=== PATIENT | female | born 1990 | race Caucasian/White ===

== ENCOUNTER 2019-05-18 11:20 | Emergency (ER) | payer SELFPAY ==
[2019-05-18] MEDS ORDERED: Sodium Chloride 0.9% 10 ML Syringe FLUSH PRN (12:17)
[2019-05-18] MEDS ORDERED: Metoclopramide 10 MG/2 ML SDV IV ONE (12:17)
[2019-05-18] MEDS ORDERED: fentaNYL 100 MCG/2 ML SDV IVPUSH ONE (12:17)
[2019-05-18] MEDS ORDERED: Ketorolac 30 MG/ML SDV IVPUSH ONE (12:17)
[2019-05-18] MEDS ORDERED: Sodium Chloride 0.9% 1,000 ML IV SCH (12:30)
[2019-05-18 13:03] VITALS: BP 111/63; PULSE 56
--- NOTE | 2019-05-18 14:07 | EDM.PDOC ---
ED HPI GENERAL MEDICAL PROBLEM - General Chief Complaint: Abdominal Pain Stated Complaint: ULMBILICAL HERNIA MESH, ABD PAIN Time Seen by Provider: 05/18/19 12:20 Source of Information: Reports: Patient, Family History Limitations: Reports: No Limitations - History of Present Illness INITIAL COMMENTS - FREE TEXT/NARRATIVE: 29 year old female presents to ER for evaluation due to acute onset periumbilical abdominal pain yesterday. Patient was raking leaves yesterday around noon and felt a pop in her abdomen resulting in abdominal pain and had to stop. Patient did not take any medications for pain today. Patient had a umbilical hernia repair about 3 years ago with no recent complications or concerns. Alma was unable to sleep last night due to pain. Alma has been feeling nausea today without vomiting. Pain is much improved at rest and worsen when standing or movement. Patient had a normal but slightly looser BM this am of normal color. Patient has not noticed new bulging or redness in her abdomen and unable to localize her pain. Patient has not eaten or drank any fluid today due to nausea and discomfort. Patient denies or urinary symptoms. No vaginal discharge or abnormal bleeding. Abdomen Pain Score (Numeric/FACES): 2 - Related Data Allergies Allergy/AdvReac Type Severity Reaction Status Date / Time aspirin Allergy Severe Difficulty Verified 05/18/19 11:52 Breathing levofloxacin [From Levaquin] Allergy Severe Difficulty Verified 05/18/19 11:52 Breathing Home Meds: Home Meds Albuterol [Proventil Neb Soln] 2.5 mg .XX Q6HR 30 Days neb 05/27/16 [Rx] Acetaminophen/HYDROcodone [[place] 325-5 MG] 1 - 2 tab PO Q6H PRN 2 Days #10 tab 05/18/19 [Rx] Citalopram Hydrobromide [Celexa] 10 mg PO DAILY 05/18/19 [History] Cyclobenzaprine [Flexeril] 5 - 10 mg PO TID PRN 5 Days #15 tab 05/18/19 [Rx] Ibuprofen 800 mg PO Q6H PRN 20 Days #30 tablet 05/18/19 [Rx] Past Medical History - Past Health History Medical/Surgical History: Denies Medical/Surgical History Gastrointestinal History: Reports: GERD 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: , 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 Psychiatric History: Reports: Anxiety Dermatologic History: Reports: Other (See Below) Other Dermatologic History: history of munson to stomach right arm, leg, neck - Infectious Disease History Infectious Disease History: Reports: Chicken Pox - Past Surgical History HEENT Surgical History: Reports: Adenoidectomy, Tonsillectomy GI Surgical History: Reports: Hernia, Abdominal Social & Family History - Family History Family Medical History: Noncontributory - Tobacco Use Smoking Status *Q: Current Every Day Smoker Years of Tobacco use: 10 Packs/Tins Daily: 0.5 - Caffeine Use Caffeine Use: Reports: Coffee, Soda - Recreational Drug Use Recreational Drug Use: No ED ROS GENERAL - Review of Systems Review Of Systems: ROS reveals no pertinent complaints other than HPI. ED EXAM, GI/ABD - Physical Exam Exam: See Below Exam Limited By: No Limitations General Appearance: Alert, WD/WN, Moderate Distress (due to abdominal pain ), Other (tearful due to pain) Eyes: Bilateral: Normal Appearance, EOMI Ears: Normal External Exam, Normal Canal, Hearing Grossly Normal, Normal TMs Nose: Normal Inspection, Normal Mucosa, No Blood Throat/Mouth: Normal Inspection Head: Atraumatic, Normocephalic Neck: Normal Inspection, Supple, Non-Tender, Full Range of Motion Respiratory/Chest: No Respiratory Distress, Lungs Clear, Normal Breath Sounds, Chest Non-Tender Cardiovascular: Normal Peripheral Pulses, Regular Rate, Rhythm, No Edema, No Gallop GI/Abdominal Exam: Normal Bowel Sounds, Soft, No Distention, No Mass, Pelvis Stable, Tender (right mid abdomen and entire periumbilical area), Hernia (no palpable hernia with increase in intraabdominal pressure but limited effort due to pain). No: Guarding, Rigid, Rebound (Female) Exam: Deferred Rectal (Female) Exam: Deferred Extremities: Normal Inspection, Normal Range of Motion, Non-Tender, Normal Capillary Refill, No Pedal Edema Neurological: Alert, Oriented, CN II-XII Intact, Normal Cognition, Normal Gait, Normal Reflexes, No Motor/Sensory Deficits Psychiatric: Normal Affect, Normal Mood, Tearful Skin Exam: Warm, Dry, Intact, Normal Color, No Rash Course - Vital Signs Last Recorded V/S: Last Vital Signs Temp 36.3 C 05/18/19 11:49 Pulse 56 L 05/18/19 13:02 Resp 16 05/18/19 13:02 BP 111/63 05/18/19 13:02 Pulse Ox 100 05/18/19 13:02 - Orders/Labs/Meds Orders: Active Orders 24 hr Category Date Time Status Peripheral IV Care [RC] . DIRECTED Care 05/18/19 12:18 Active Sodium Chloride 0.9% [Normal Saline] 1,000 ml Med 05/18/19 12:30 Active IV ASDIRECTED Sodium Chloride 0.9% [Saline Flush] Med 05/18/19 12:17 Active 10 ml FLUSH ASDIRECTED PRN Peripheral IV Insertion Adult [OM.PC] Urgent Oth 05/18/19 12:16 Ordered Medication Orders Sodium Chloride (Normal Saline) 1,000 mls @ 500 mls/hr IV ASDIRECTED NATIVIDAD Last Admin: 05/18/19 12:54 Dose: 500 mls/hr Sodium Chloride (Saline Flush) 10 ml FLUSH ASDIRECTED PRN PRN Reason: Keep Vein Open Last Admin: 05/18/19 13:03 Dose: 10 ml Labs: Laboratory Tests 05/18/19 05/18/19 05/18/19 Range/Units 12:17 12:29 12:29 WBC 7.7 (4.5-11.0) K/uL RBC 4.30 (3.30-5.50) M/uL Hgb 13.9 D (12.0-15.0) g/dL Hct 40.5 (36.0-48.0) % MCV 94 (80-98) fL MCH 32 H (27-31) pg MCHC 34 (32-36) % Plt Count 250 (150-400) K/uL Neut % (Auto) 68 H (36-66) % Lymph % (Auto) 22 L (24-44) % Teller % (Auto) 9 H (2-6) % Eos % (Auto) 2 (2-4) % Baso % (Auto) 0 (0-1) % Sodium 143 (140-148) mmol/L Potassium 3.5 L (3.6-5.2) mmol/L Chloride 107 (100-108) mmol/L Carbon Dioxide 25 (21-32) mmol/L Anion Gap 14.5 H (5.0-14.0) mmol/L BUN 8 (7-18) mg/dL Creatinine 0.7 D (0.6-1.0) mg/dL Est Cr Clr Drug Dosing 97.21 mL/min Estimated GFR (MDRD) > 60 (>60) Glucose 99 (74-106) mg/dL Calcium 8.8 (8.5-10.1) mg/dL HCG, Qual Negative Urine Color (YELLOW) Urine Appearance (CLEAR) Urine pH (5.0-8.0) Ur Specific [place] (1.008-1.030) Urine Protein (NEGATIVE) mg/dL Urine Glucose (UA) (NEGATIVE) mg/dL Urine Ketones (NEGATIVE) mg/dL Urine Occult Blood (NEGATIVE) Urine Nitrite (NEGATIVE) Urine Bilirubin (NEGATIVE) Urine Urobilinogen (0.2-1.0) EU/dL Ur Leukocyte Esterase (NEGATIVE) Urine RBC (0-5) Urine WBC (0-5) Ur Epithelial Cells Amorphous Sediment Urine Bacteria Urine Mucus 05/18/19 Range/Units 14:18 WBC (4.5-11.0) K/uL RBC (3.30-5.50) M/uL Hgb (12.0-15.0) g/dL Hct (36.0-48.0) % MCV (80-98) fL MCH (27-31) pg MCHC (32-36) % Plt Count (150-400) K/uL Neut % (Auto) (36-66) % Lymph % (Auto) (24-44) % Teller % (Auto) (2-6) % Eos % (Auto) (2-4) % Baso % (Auto) (0-1) % Sodium (140-148) mmol/L Potassium (3.6-5.2) mmol/L Chloride (100-108) mmol/L Carbon Dioxide (21-32) mmol/L Anion Gap (5.0-14.0) mmol/L BUN (7-18) mg/dL Creatinine (0.6-1.0) mg/dL Est Cr Clr Drug Dosing mL/min Estimated GFR (MDRD) (>60) Glucose (74-106) mg/dL Calcium (8.5-10.1) mg/dL HCG, Qual Urine Color Yellow (YELLOW) Urine Appearance Clear (CLEAR) Urine pH 6.0 (5.0-8.0) Ur Specific [place] 1.015 (1.008-1.030) Urine Protein Negative (NEGATIVE) mg/dL Urine Glucose (UA) Negative (NEGATIVE) mg/dL Urine Ketones Negative (NEGATIVE) mg/dL Urine Occult Blood Negative (NEGATIVE) Urine Nitrite Negative (NEGATIVE) Urine Bilirubin Negative (NEGATIVE) Urine Urobilinogen 0.2 (0.2-1.0) EU/dL Ur Leukocyte Esterase Negative (NEGATIVE) Urine RBC 0-5 (0-5) Urine WBC 0-5 (0-5) Ur Epithelial Cells Rare Amorphous Sediment Not seen Urine Bacteria Rare Urine Mucus Not seen Meds: Medications Generic Name Dose Route Start Last Admin Trade Name Freq PRN Reason Stop Dose Admin Sodium Chloride 1,000 mls @ 500 mls/hr 05/18/19 12:30 05/18/19 12:54 Normal Saline IV 500 mls/hr ASDIRECTED NATIVIDAD Administration Sodium Chloride 10 ml 05/18/19 12:17 05/18/19 13:03 Saline Flush FLUSH 10 ml ASDIRECTED PRN Administration Keep Vein Open Discontinued Medications Generic Name Dose Route Start Last Admin Trade Name Freq PRN Reason Stop Dose Admin Fentanyl 50 mcg 05/18/19 12:17 05/18/19 12:55 Sublimaze IVPUSH 05/18/19 12:18 50 mcg ONETIME ONE Administration Ketorolac Tromethamine 30 mg 05/18/19 12:17 05/18/19 12:57 Toradol IVPUSH 05/18/19 12:18 30 mg ONETIME ONE Administration Metoclopramide HCl 5 mg 05/18/19 12:17 05/18/19 12:57 Reglan IV 05/18/19 12:18 5 mg ONETIME ONE Administration - Re-Assessments/Exams Free Text/Narrative Re-Assessment/Exam: Patient was offered IV Fluids, Reglan for nausea, Toradol for pain and Fentanyl 50mcg. Patient's pain and nausea was much improved. I reviewed test results with patient and family which are all normal. Urine normal test negative. Patient has benign abdominal exam and localized pain to muscle layer. I explained that hernia is not normal visualized on CT or abdominal xray unless bowel obstruction. Advance imaging is not recommended at this time. Patient has normal bowel sound and BM this am therefore unlikely. Pain medications, NSAIDs and muscle relaxant offered with follow with PCP if continued concerns or General Surgeon if symptoms worsen or not improving with abdominal strain instructions. 05/18/19 13:35 Departure - Departure Time of Disposition: 14:10 Disposition: Home, Self-Care 01 Clinical Impression: Abdominal muscle strain - Discharge Information Prescriptions: Acetaminophen/HYDROcodone [[place] 325-5 MG] 1 - 2 tab PO Q6H PRN 2 Days #10 tab PRN Reason: Pain (Severe 7-10) Cyclobenzaprine [Flexeril] 5 - 10 mg PO TID PRN 5 Days #15 tab PRN Reason: Muscle Spasm Ibuprofen 800 mg PO Q6H PRN 20 Days #30 tablet PRN Reason: inflammation Instructions: Abdominal Pain, Adult, [id number], Heat Therapy, Muscle Strain Referrals: Kendal Alvarez PA [Primary Care Provider] - Forms: ED Department Discharge Additional Instructions: 1. Warm compress 15-20 minutes 3-4 time per day. 2. Ibuprofen 800mg every 6 hours with food for pain, swelling and inflammation. 3. Flexeril 5-10mg every 6 hours for muscle spasms and pain. 4. [place] 1-2 tablets every 6-8 hours for moderate to severe pain. 5. Call PCP for recheck in 1-2 weeks to discuss symptoms and physical therapy. 6. Purchase an abdominal wrap to remind you to protect your abdominal muscle with increased activity. 7. Call General Surgeon for recheck in 2-3 weeks if continue pain, worsening symptoms or concerns. - My Orders Last 24 Hours: My Active Orders 05/18/19 12:16 Peripheral IV Insertion Adult [OM.PC] Urgent 05/18/19 12:17 Sodium Chloride 0.9% [Saline Flush] 10 ml FLUSH ASDIRECTED PRN 05/18/19 12:18 Peripheral IV Care [RC] . DIRECTED 05/18/19 12:30 Sodium Chloride 0.9% [Normal Saline] 1,000 ml IV ASDIRECTED - Assessment/Plan Last 24 Hours: My Active Orders 05/18/19 12:16 Peripheral IV Insertion Adult [OM.PC] Urgent 05/18/19 12:17 Sodium Chloride 0.9% [Saline Flush] 10 ml FLUSH ASDIRECTED PRN 05/18/19 12:18 Peripheral IV Care [RC] . DIRECTED 05/18/19 12:30 Sodium Chloride 0.9% [Normal Saline] 1,000 ml IV ASDIRECTED
== END 2019-05-18 14:35 | disposition home or self-care (01) ==
LOC: JP.ED 11:20
DX: S39.011A Strain of muscle, fascia and tendon of abdomen, initial encounter (principal); F17.210 Nicotine dependence, cigarettes, uncomplicated; Z88.1 Allergy status to other antibiotic agents; Z79.899 Other long term (current) drug therapy; Z98.890 Other specified postprocedural states; Z88.6 Allergy status to analgesic agent; X50.0XXA Overexertion from strenuous movement or load, initial encounter
CPT/HCPCS: 36415; 80048; 81001; 84703; 85025; 96361; 96374; 96375; 99284; J1885; J2765; J3010; J7030; 99283

== ENCOUNTER 2020-12-12 14:59 | Inpatient (IN) | payer BC, MEDICAID ==
--- NOTE | 2020-12-12 16:06 | PCM.PN ---
- General Info Date of Service: 12/12/20 (late contractions) Admission Dx/Problem (Free Text): 30 year old with late contractions. Contractions started earlier today and have remained steady over the day. No leaking of fluid or bloody discharge. She is 36 1/7 weeks gestation with an LATONIA of 01/08/21, has a repeat c section scheduled for 01/02/21. HIV negative, GBS done today, Will need Covid if continues to contract despite hydration. She has had 3 vaginal births and one c section for demise at 29 weeks. - Review of Systems General: Reports: No Symptoms HEENT: Reports: No Symptoms Pulmonary: Reports: No Symptoms Cardiovascular: Reports: No Symptoms Gastrointestinal: Reports: No Symptoms Genitourinary: Reports: No Symptoms Musculoskeletal: Reports: No Symptoms Skin: Reports: No Symptoms Neurological: Reports: No Symptoms Psychiatric: Reports: No Symptoms - Patient Data Vitals - Most Recent: Last Vital Signs Temp 97.4 F 12/12/20 15:09 Pulse 78 12/12/20 15:09 Resp 16 12/12/20 15:09 BP 118/67 12/12/20 15:09 Pulse Ox 95 12/12/20 15:09 Weight - Most Recent: 163 lb Lab Results Last 24 Hours: Laboratory Results - last 24 hr 12/12/20 Range/Units 15:10 Urine Color Yellow (YELLOW) Urine Appearance Clear (CLEAR) Urine pH 6.5 (5.0-8.0) Ur Specific [place] 1.010 (1.008-1.030) Urine Protein Negative (NEGATIVE) mg/dL Urine Glucose (UA) Negative (NEGATIVE) mg/dL Urine Ketones Negative (NEGATIVE) mg/dL Urine Occult Blood Negative (NEGATIVE) Urine Nitrite Negative (NEGATIVE) Urine Bilirubin Negative (NEGATIVE) Urine Urobilinogen 0.2 (0.2-1.0) EU/dL Ur Leukocyte Esterase Small H (NEGATIVE) Urine RBC 0-5 (0-5) Urine WBC 5-10 H (0-5) Ur Epithelial Cells Few Amorphous Sediment Not seen Urine Bacteria Moderate Urine Mucus Not seen - Exam General: Alert, Oriented HEENT: Pupils Equal Neck: Supple Lungs: Clear to Auscultation Cardiovascular: Regular Rate, Regular Rhythm GI/Abdominal Exam: Soft (Female) Exam: Normal External Exam, Cervical Dilatation, Enlarged Uterus Back Exam: Normal Inspection, Full Range of Motion Extremities: No Pedal Edema, Normal Capillary Refill Skin: Warm Psy/Mental Status: Alert, Normal Affect, Normal Mood - Patient Data Lab Results Last 24 hrs: Laboratory Results - last 24 hr 12/12/20 Range/Units 15:10 Urine Color Yellow (YELLOW) Urine Appearance Clear (CLEAR) Urine pH 6.5 (5.0-8.0) Ur Specific [place] 1.010 (1.008-1.030) Urine Protein Negative (NEGATIVE) mg/dL Urine Glucose (UA) Negative (NEGATIVE) mg/dL Urine Ketones Negative (NEGATIVE) mg/dL Urine Occult Blood Negative (NEGATIVE) Urine Nitrite Negative (NEGATIVE) Urine Bilirubin Negative (NEGATIVE) Urine Urobilinogen 0.2 (0.2-1.0) EU/dL Ur Leukocyte Esterase Small H (NEGATIVE) Urine RBC 0-5 (0-5) Urine WBC 5-10 H (0-5) Ur Epithelial Cells Few Amorphous Sediment Not seen Urine Bacteria Moderate Urine Mucus Not seen Sepsis Event Note - Focused Exam Vital Signs: Vital Signs Temp Pulse Resp BP Pulse Ox 12/12/20 15:09 97.4 F 78 16 118/67 95 - Problem List & Annotations (1) labor in third trimester SNOMED Code(s): 8485163 Code(s): O60.03 - LABOR WITHOUT DELIVERY, THIRD TRIMESTER Status: Acute Current Visit: Yes Qualifiers: Fetus number: single or unspecified fetus - Problem List Review Problem List Initiated/Reviewed/Updated: Yes - My Orders Last 24 Hours: My Active Orders 12/12/20 15:09 OB Check [OM.PC] Click to Edit 12/12/20 15:59 CULTURE GROUP B STREP [RM] Routine - Assessment Assessment:: 12/12/20 late contractions at 36 1/7 weeks gestation if has cervical change will treat for GBS and prepare for c section. - Plan Plan:: see above
[2020-12-12] MEDS ORDERED: Sodium Chloride 0.9% 1,000 ML IV ONE (16:09)
[2020-12-12] MEDS: Sodium Chloride 0.9% 1,000 ML IV SCH (17:30)
[2020-12-12] MEDS ORDERED: Penicillin G Potassium 5 MILLUNITS in Sodium Chloride 0.9% 100 ML IV ONE (17:57)
[2020-12-12] MEDS ORDERED: Sodium Chloride 0.9% 10 ML Syringe FLUSH PRN (18:20)
--- NOTE | 2020-12-12 18:31 | PCM.LDHP ---
L&D History of Present Illness - General Date of Service: 12/12/20 Admit Problem/Dx: 30 year old with late contractions. Contractions started earlier today and have remained steady over the day. No leaking of fluid or bloody discharge. She is 36 1/7 weeks gestation with an LATONIA of 01/08/21, has a repeat c section scheduled for 01/02/21. HIV negative, GBS done today, Will need Covid if continues to contract despite hydration. She has had 3 vaginal births and one c section for demise at 29 weeks. Source of Information: Patient History Limitations: Reports: No Limitations - History of Present Illness Introduction:: 12/12/20 30 year old G8 3 living 36 1/7 week IUP with GDM and contractions that are stronger enough to create cervical change. She was scheduled for a 39 week c section on 01/02/21. She started ann at noon today and continues despite hydrate and rest. Had 36 week ultrasound today and estimated weight 6 pounds. Timing/Duration: Reports: minutes: (2) Location, : Reports: Abdomen, Lower back Quality: Reports: Pressure Severity: Moderate Improves with: Reports: None Worsens with: Reports: None - Related Data Allergies/Adverse Reactions: Allergies Allergy/AdvReac Type Severity Reaction Status Date / Time aspirin Allergy Severe Difficulty Verified 05/18/19 11:52 Breathing levofloxacin [From Levaquin] Allergy Severe Difficulty Verified 05/18/19 11:52 Breathing Home Medications: Home Meds Folic Acid 1 tab PO DAILY 12/12/20 [History] Pnv No.95/Ferrous Fum/Folic AC [ Vitamin Tablet] 1 tab PO DAILY 12/12/20 [History] Progesterone, Micronized [Progesterone] 1 tab PO DAILY 12/12/20 [History] Past Medical History - Past Health History Medical/Surgical History: Denies Medical/Surgical History Respiratory History: Reports: Other (See Below) Other Respiratory History: asthma induced by seasonal allergies. 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 : 8 Para: 4 (3 living) LMP (Approximate): (01/08/21 LATONIA) Psychiatric History: Reports: Anxiety Endocrine/Metabolic History: Reports: Diabetes, Gestational Dermatologic History: Reports: Other (See Below) Other Dermatologic History: history of munson to stomach right arm, leg, neck - Infectious Disease History Infectious Disease History: Reports: Chicken Pox - Past Surgical History HEENT Surgical History: Reports: Adenoidectomy, Tonsillectomy GI Surgical History: Reports: Hernia, Abdominal Endocrine Surgical History: Reports: None Dermatological Surgical History: Reports: Skin Graft Social & Family History - Family History Family Medical History: No Pertinent Family History - Tobacco Use Tobacco Use Status *Q: Current Every Day Tobacco User Years of Tobacco use: 16 Packs/Tins Daily: 0.5 - Caffeine Use Caffeine Use: Reports: Soda - Recreational Drug Use Recreational Drug Use: No H&P Review of Systems - Review of Systems: Review Of Systems: See Below General: Reports: Fatigue HEENT: Reports: No Symptoms Pulmonary: Reports: No Symptoms Cardiovascular: Reports: No Symptoms Gastrointestinal: Reports: No Symptoms Genitourinary: Reports: No Symptoms Musculoskeletal: Reports: No Symptoms Skin: Reports: No Symptoms Psychiatric: Reports: No Symptoms Neurological: Reports: No Symptoms Hematologic/Lymphatic: Reports: No Symptoms Immunologic: Reports: No Symptoms L&D Exam - Exam Exam: See Below - Vital Signs Vital Signs: Last Vital Signs Temp 97.4 F 12/12/20 15:09 Pulse 78 12/12/20 15:09 Resp 16 12/12/20 15:09 BP 118/67 12/12/20 15:09 Pulse Ox 95 12/12/20 15:09 Weight: 163 lb - OB Specific Contraction Duration (sec): 60-120 Contraction Frequency (min): 3-4 Contraction Intensity: Moderate to Strong Movement: Active Heart Tones: Present Heart Tones per Min: 140 Heart Rate (FHR) Variability: Moderate (6-25 bmp) Presentation: Vertex Estimated Weight: 6 pounds - Gardner Score Gardner Score Cervix Position: Anterior Gardner Score Consistency: Soft Gardner Score Effacement: 51-70% Gardner Score Dilation: 1-2 cm Gardner Score Infant's Station: -1 ,0 Gardner Score Total: 9 - Exam General: Alert, Oriented HEENT: PERRLA Neck: Supple Lungs: Clear to Auscultation, Normal Respiratory Effort Cardiovascular: Regular Rate, Regular Rhythm GI/Abdominal Exam: Normal Bowel Sounds, Soft, Non-Tender, No Organomegaly Rectal Exam: Normal Exam Genitourinary: Normal external exam, Cervical dilitation, Enlarged uterus Back Exam: Normal Inspection Extremities: No Pedal Edema, Normal Capillary Refill Skin: Warm Neurological: Reflexes Equal Bilateral Psychiatric: Alert, Normal Affect, Normal Mood - Patient Data Lab Results Last 24 hrs: Laboratory Results - last 24 hr 12/12/20 Range/Units 15:10 Urine Color Yellow (YELLOW) Urine Appearance Clear (CLEAR) Urine pH 6.5 (5.0-8.0) Ur Specific [place] 1.010 (1.008-1.030) Urine Protein Negative (NEGATIVE) mg/dL Urine Glucose (UA) Negative (NEGATIVE) mg/dL Urine Ketones Negative (NEGATIVE) mg/dL Urine Occult Blood Negative (NEGATIVE) Urine Nitrite Negative (NEGATIVE) Urine Bilirubin Negative (NEGATIVE) Urine Urobilinogen 0.2 (0.2-1.0) EU/dL Ur Leukocyte Esterase Small H (NEGATIVE) Urine RBC 0-5 (0-5) Urine WBC 5-10 H (0-5) Ur Epithelial Cells Few Amorphous Sediment Not seen Urine Bacteria Moderate Urine Mucus Not seen - Problem List (1) labor in third trimester SNOMED Code(s): 0979017 ICD Code: O60.03 - LABOR WITHOUT DELIVERY, THIRD TRIMESTER Status: Acute Current Visit: Yes Qualifiers: Fetus number: single or unspecified fetus (2) GBS screening not performed SNOMED Code(s): 022610698 ICD Code: [id number] - Status: Acute Current Visit: Yes (3) Smoker SNOMED Code(s): 64000592 ICD Code: F17.200 - NICOTINE DEPENDENCE, UNSPECIFIED, UNCOMPLICATED Status: Acute Current Visit: Yes Problem List Initiated/Reviewed/Updated: Yes Orders Last 24hrs: Active Orders 24 hr Category Date Time Status Patient Status [ADT] Routine ADT 12/12/20 18:20 Active Antiembolic Devices [RC] .Routine Care 12/12/20 18:22 Active Non Stress Test [RC] Click to Edit Care 12/12/20 18:20 Active OB Check [OM.PC] Click to Edit Care 12/12/20 15:09 Ordered Peripheral IV Care [RC] . DIRECTED Care 12/12/20 18:21 Active Procedure Site Prep Instruct [RC] ASDIRECTED Care 12/12/20 18:20 Active RT Incentive Spirometry [RC] PER UNIT ROUTINE Care 12/12/20 18:20 Active VTE/DVT Education [RC] Click to Edit Care 12/12/20 18:22 Active Vital Signs [RC] PER UNIT ROUTINE Care 12/12/20 18:20 Active CBC WITH AUTO DIFF [HEME] Urgent Lab 12/12/20 18:20 Ordered COMPREHENSIVE METABOLIC PN,CMP [CHEM] Urgent Lab 12/12/20 18:20 Ordered CORONAVIRUS COVID-19 RAPID [MOLEC] Routine Lab 12/12/20 18:22 Received CORONAVIRUS COVID-19, RICHARD Stat Lab 12/12/20 18:22 Ordered CULTURE GROUP B STREP [RM] Routine Lab 12/12/20 16:03 Received GLYCOSYLATED HEMOGLOBIN,HGBA1C [CHEM] Urgent Lab 12/12/20 18:23 Ordered TYPE AND SCREEN [BBK] Urgent Lab 12/12/20 18:20 Ordered Penicillin G Potassium [Pfizerpen] 5 millunits Med 12/12/20 17:57 Active Sodium Chloride 0.9% [Normal Saline] 100 ml IV ONETIME Sodium Chloride 0.9% [Normal Saline] 1,000 ml Med 12/12/20 18:00 Active IV ASDIRECTED Sodium Chloride 0.9% [Saline Flush] Med 12/12/20 18:20 Ordered 10 ml FLUSH ASDIRECTED PRN DVT/VTE Prophylaxis Reflex [OM.PC] Routine Oth 12/12/20 18:20 Ordered Peripheral IV Insertion Adult [OM.PC] Routine Oth 12/12/20 18:20 Ordered Schedule Procedure [COMM] Per Unit Routine Oth 12/12/20 18:20 Ordered Resuscitation Status Routine Resus Stat 12/12/20 18:20 Ordered Medication Orders Sodium Chloride (Normal Saline) 1,000 mls @ 125 mls/hr IV ASDIRECTED NATIVIDAD Penicillin G Potassium 5 (millunits/ Sodium Chloride) 100 mls @ 200 mls/hr IV ONETIME ONE Stop: 12/12/20 18:26 Sodium Chloride (Sodium Chloride 0.9% 10 Ml Syringe) 10 ml FLUSH ASDIRECTED PRN PRN Reason: Keep Vein Open Assessment/Plan Comment:: 12/12/20 36 1/7 week IUp with GDM questionable control, unknown GBS, smoker with labor Plan repeat c section tonight crew called labs ordered PCN started and covid swab done
[2020-12-12] MEDS ORDERED: Oxytocin 10 Units/1 ML SDV ONE ×2 (18:35→18:42)
[2020-12-12] MEDS ORDERED: ePHEDrine 50 MG/ML SDV ONE (18:35)
[2020-12-12] MEDS ORDERED: cefOXitin 2 GM Vial ONE (18:35)
[2020-12-12] MEDS ORDERED: Ondansetron 4 MG Tab.DIS PO PRN (19:09)
[2020-12-12] MEDS ORDERED: Bisacodyl 10 MG Supp RECTAL PRN (19:09)
[2020-12-12] MEDS ORDERED: Witch Hazel Medicated Pads 100/Jar TOP ONE (19:09)
[2020-12-12] MEDS ORDERED: Lanolin 100% Cream 40 GM Tube TOP ONE (19:09)
[2020-12-12] MEDS ORDERED: Acetaminophen/HYDROcodone 325-5 MG Tab PO PRN (19:09)
[2020-12-12] MEDS ORDERED: Acetaminophen 325 MG Tab PO PRN (19:09)
[2020-12-12] MEDS ORDERED: diphenhydrAMINE 50 MG/ML SDV IVPUSH PRN (19:09)
[2020-12-12] MEDS ORDERED: ePHEDrine 50 MG/ML SDV IVPUSH PRN (19:09)
[2020-12-12] MEDS ORDERED: Simethicone 80 MG Tab.Chew PO PRN (19:09)
[2020-12-12] MEDS ORDERED: Naloxone 0.4 MG/ML SDV IVPUSH PRN (19:09)
[2020-12-12] MEDS ORDERED: Benzocaine 20% Top Spray 56 GM Bottle TOP ONE (19:09)
[2020-12-12] MEDS ORDERED: fentaNYL 100 MCG/2 ML SDV IVPUSH PRN (19:10)
[2020-12-12] MEDS: Ibuprofen 800 MG Tab PO PRN (20:46)
[2020-12-12] MEDS: oxyCODONE 5 MG Tab PO PRN ×2 (22:08→23:22)
[2020-12-12] MEDS: Acetaminophen 500 MG Tab PO PRN (23:22)
[2020-12-13] MEDS: oxyCODONE 5 MG Tab PO PRN ×6 (02:10→23:18)
[2020-12-13] MEDS: ceFAZolin 1 GM in Premix Bag 1 BAG IV SCH ×3 (02:11→18:03)
[2020-12-13] MEDS: Sodium Chloride 0.9% 1,000 ML IV SCH (02:15)
[2020-12-13] MEDS: Ibuprofen 800 MG Tab PO PRN ×3 (05:16→20:53)
[2020-12-13] MEDS: Acetaminophen 500 MG Tab PO PRN ×3 (06:15→18:16)
[2020-12-13] MEDS: Prenatal Multivitamin with Calcium/Folic Acid/Iron Tab PO SCH (09:00)
--- NOTE | 2020-12-13 09:13 | OR ---
DATE OF PROCEDURE: 12/12/2020 SURGEON: Kurt Stephenson MD PROCEDURE: section with aftercare. 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 ANESTHETIC: Spinal. RISKS: Risks, benefits, alternatives, and limitations including, but not limited to, infection, bleeding, injury to baby, bladder, chronic wounds, chronic pain, and other risks not listed here were explained to the patient, and they wished to proceed. PROCEDURE IN DETAIL: The patient was placed in supine position. After spinal anesthetic, the abdomen was prepped and draped. A Pfannenstiel-type incision was made through the previous incision. This was then carried down with electrocautery to the external oblique, which was also opened with electrocautery. This was then superiorly and inferiorly using electrocautery. Once this was completed, the peritoneum was entered sharply using Metzenbaum scissors. This was then opened using muscle sparing/muscle spreading technique. The bladder was identified and deflected inferiorly. The uterus was then entered bluntly. This is a large baby that was delivered without any difficulty. The cord was clamped and subsequently cut. The baby was delivered off the field. It was noted to be moving all 4 extremities. The uterus was then delivered extracorporeally. The placenta was then removed. Pitocin was given. Minimal bleeding was controlled with direct pressure. Uterus was then closed with 2 layers of #1 Vicryl in a running suture x2. The bladder was reapproximated. Multiple areas inspected for clot and removed if noted. The abdomen was irrigated. The rectus muscles were reapproximated with #1 Vicryl. Fascia was closed with running Vicryl x2, #1. The subcutaneous tissues were reapproximated with 3-0 Vicryl and the skin was closed with 4-0 Vicryl. Dermabond was applied. The patient tolerated the procedure well. Of note, Alena Dempsey was present and active in the critical components of this procedure. Kurt Stephenson MD /[id number]
--- NOTE | 2020-12-13 11:09 | PN ---
DATE OF SERVICE: 12/13/2020 SUBJECTIVE: The patient is doing well. Pain is well controlled. No nausea, vomiting, shortness of breath, or chest pain. OBJECTIVE: VITAL SIGNS: Stable. CARDIOVASCULAR: Regular rhythm rate. RESPIRATORY: Lungs are clear auscultation bilaterally. SKIN: Incision is healing well. ASSESSMENT: Status post . PLAN: The patient will discontinue Reyse. Saline lock IV. Continue to advance diet. With respect to white blood cell count, we will continue the antibiotic at this time. Kurt Stephenson MD /[id number]
[2020-12-13] MEDS: Docusate Sodium 100 MG Cap PO PRN (18:16)
[2020-12-14] MEDS: ceFAZolin 1 GM in Premix Bag 1 BAG IV SCH ×2 (01:55→09:21)
[2020-12-14] MEDS: oxyCODONE 5 MG Tab PO PRN ×3 (02:56→09:17)
[2020-12-14] MEDS: Ibuprofen 800 MG Tab PO PRN (04:31)
[2020-12-14] MEDS: Acetaminophen 500 MG Tab PO PRN (04:39)
--- NOTE | 2020-12-14 08:15 | PCM.SN.2 ---
- Free Text/Narrative Note: 12/14/20 Patient discharging home today. Medications and discharge per surgical team. I will place patient on 10 days of oral antibiotic Augmentin BID due to likely chorioamnionitis that lead to her late delivery.
[2020-12-14] MEDS: Prenatal Multivitamin with Calcium/Folic Acid/Iron Tab PO SCH (09:17)
[2020-12-14] MEDS: Docusate Sodium 100 MG Cap PO PRN (10:26)
[2020-12-14 13:37] VITALS: BP 102/79; PULSE 83
== END 2020-12-14 11:00 | disposition home or self-care (01) | DRG 786 ==
LOC: JP.OBCHECK 14:59 → JP.OB 18:14 → OBSVTOIN 19:23 → JP.MS 22:11
PROVIDERS: ADMIT Nurse Practitioner Family; ATTEND Surgery
PROC: 10D00Z1 Extraction of Products of Conception, Low, Open Approach (ICD-10-PCS; principal; 2020-12-12)
DX: O34.211 Maternal care for low transverse scar from previous cesarean delivery (principal); O60.14X0 Preterm labor third trimester with preterm delivery third trimester, not applicable or unspecified; O24.429 Gestational diabetes mellitus in childbirth, unspecified control; O99.62 Diseases of the digestive system complicating childbirth; K21.9 Gastro-esophageal reflux disease without esophagitis; O99.334 Smoking (tobacco) complicating childbirth; F17.200 Nicotine dependence, unspecified, uncomplicated; Z20.822 Contact with and (suspected) exposure to COVID-19; Z3A.36 36 weeks gestation of pregnancy; Z88.6 Allergy status to analgesic agent; Z37.0 Single live birth; Z88.1 Allergy status to other antibiotic agents; Z98.890 Other specified postprocedural states
CPT/HCPCS: 36415; 80048; 80053; 81001; 82947; 83036; 85025; 86850; 86900; 86901; 87081; 88307; 99211; A9270-GY; J0690; J0694; J2540; J2590; J3010; J7030; U0002

== ENCOUNTER 2022-12-10 06:06 | Day surgery (SDC) | payer MEDICAID ==
[2022-12-10] MEDS ORDERED: Bupivacaine 0.5% 30 ML SDV ONE (06:46)
[2022-12-10] MEDS ORDERED: Lactated Ringers 1,000 ML IV SCH (07:00)
[2022-12-10] MEDS ORDERED: Nozin Nasal Sanitizer NASBOTH ONE (07:00)
[2022-12-10] MEDS ORDERED: Midazolam 1 MG/ML 2 ML SDV ONE (07:12)
[2022-12-10] MEDS ORDERED: Propofol 200 MG/20 ML SDV ONE (07:12)
[2022-12-10] MEDS ORDERED: fentaNYL 100 MCG/2 ML SDV ONE (07:12)
[2022-12-10] MEDS ORDERED: fentaNYL 250 MCG/5 ML SDV ONE (08:03)
[2022-12-10] MEDS ORDERED: Ondansetron 4 MG/2 ML SDV ONE (08:08)
[2022-12-10] MEDS ORDERED: Ketorolac 30 MG/ML SDV ONE (08:08)
[2022-12-10] MEDS ORDERED: Dexamethasone 4 MG/ML SDV ONE (08:08)
[2022-12-10] MEDS ORDERED: Bupivacaine 0.5% 30 ML SDV INJECT ONE (08:19)
[2022-12-10] MEDS ORDERED: Acetaminophen/HYDROcodone 325-5 MG Tab PO PRN (09:13)
[2022-12-10 10:02] VITALS: PULSE 74
[2022-12-10 10:10] VITALS: BP 120/69
== END 2022-12-10 10:25 | disposition home or self-care (01) ==
LOC: JP.SDS 06:06
PROVIDERS: ATTEND Specialist
DX: M23.242 Derangement of anterior horn of lateral meniscus due to old tear or injury, left knee (principal); M23.032 Cystic meniscus, other medial meniscus, left knee; K21.9 Gastro-esophageal reflux disease without esophagitis
CPT/HCPCS: 29881; 36415; 80048; 81025; 85027; A9270; J0690; J1100; J1885; J2250; J2405; J2704; J3010; J3490; J7120

== ENCOUNTER 2022-12-24 17:37 | Emergency (ER) | payer MEDICAID ==
[2022-12-24] MEDS ORDERED: Sodium Chloride 0.9% 10 ML Syringe FLUSH PRN (18:17)
[2022-12-24] MEDS ORDERED: Ondansetron 4 MG/2 ML SDV IVPUSH ONE (18:17)
[2022-12-24] MEDS ORDERED: HYDROmorphone 0.5 MG/0.5 ML Syringe IVPUSH ONE (18:17)
[2022-12-24] MEDS ORDERED: Sodium Chloride 0.9% 1,000 ML IV SCH (18:30)
[2022-12-24 18:49] LABS: ESTIMATED GFR 117 mL/min (>60)
[2022-12-24] MEDS ORDERED: Sodium Chloride 0.9% 50 ML IV SCH (19:30)
[2022-12-24] MEDS ORDERED: Iopamidol 612 MG/ML 100 ML Bottle IV SCH (19:30)
[2022-12-24 21:00] VITALS: BP 118/65; PULSE 69
== END 2022-12-24 21:28 | disposition home or self-care (01) ==
LOC: JP.ED 17:37
DX: S39.011A Strain of muscle, fascia and tendon of abdomen, initial encounter (principal); K52.9 Noninfective gastroenteritis and colitis, unspecified; F17.210 Nicotine dependence, cigarettes, uncomplicated; Z88.8 Allergy status to other drugs, medicaments and biological substances; Z88.1 Allergy status to other antibiotic agents; Z98.890 Other specified postprocedural states; Z20.822 Contact with and (suspected) exposure to COVID-19
CPT/HCPCS: 36415; 74177; 80053; 83690; 85025; 86140; 96361; 96374; 96375; 99283; 99284-25; J1170; J2405; J3490; J7030; Q9967; U0002

== ENCOUNTER 2023-01-08 05:42 | Day surgery (SDC) | payer MEDICAID ==
[2023-01-08] MEDS ORDERED: Scopolamine 1.5 MG Transdermal Patch TOP SCH (06:15)
[2023-01-08] MEDS: Dextrose 5%-Lactated Ringers 1,000 ML IV SCH ×2 (06:34→09:30)
[2023-01-08] MEDS ORDERED: Meropenem 500 MG SDV ONE (06:46)
[2023-01-08] MEDS ORDERED: Lidocaine 1% 50 ML MDV ONE (06:46)
[2023-01-08] MEDS ORDERED: Bupivacaine 0.5%/EPINEPHrine 1:200,000 50 ML MDV ONE (06:47)
[2023-01-08] MEDS ORDERED: Glycopyrrolate 0.2 MG/ML 5 ML MDV ONE (07:01)
[2023-01-08] MEDS ORDERED: Rocuronium 50 MG/5 ML Vial ONE (07:01)
[2023-01-08] MEDS ORDERED: Propofol 200 MG/20 ML SDV ONE (07:01)
[2023-01-08] MEDS ORDERED: Ondansetron 4 MG/2 ML SDV ONE (07:01)
[2023-01-08] MEDS ORDERED: Succinylcholine 200 MG/10 ML MDV ONE (07:01)
[2023-01-08] MEDS ORDERED: Dexamethasone 4 MG/ML SDV ONE (07:01)
[2023-01-08] MEDS ORDERED: Neostigmine Methylsulfate 1 MG/ML 5 ML Syringe ONE (07:01)
[2023-01-08] MEDS ORDERED: fentaNYL 250 MCG/5 ML SDV ONE ×2 (07:01→08:04)
[2023-01-08] MEDS ORDERED: Ketamine 500 MG/5 ML MDV IV SCH (07:15)
[2023-01-08] MEDS ORDERED: Ketamine 15 MG in Sodium Chloride 0.9% 19.85 ML IV SCH (07:15)
[2023-01-08] MEDS ORDERED: ceFAZolin 2 GM in Premix Bag 1 BAG IV ONE (07:15)
[2023-01-08] MEDS ORDERED: Linezolid 600 MG/300 ML Premix Bag IRR ONE (08:06)
[2023-01-08] MEDS ORDERED: Ketorolac 30 MG/ML SDV ONE ×2 (08:41)
[2023-01-08] MEDS ORDERED: hydrOXYzine HCl 50 MG/ML SDV ONE (09:05)
[2023-01-08] MEDS: fentaNYL 50 MCG/ML SDV ONE ×2 (09:07→09:08)
[2023-01-08] MEDS ORDERED: fentaNYL 50 MCG/ML SDV IVPUSH ONE (09:30)
[2023-01-08] MEDS ORDERED: HYDROmorphone 1 MG/ML Syringe IVPUSH PRN (09:54)
[2023-01-08] MEDS ORDERED: HYDROmorphone 2 MG Tab PO PRN (09:55)
[2023-01-08] MEDS ORDERED: Ondansetron 4 MG/2 ML SDV IVPUSH PRN (10:26)
[2023-01-08 11:06] VITALS: BP 132/70; PULSE 58
[2023-01-09] MEDS ORDERED: Scopolamine 1.5 MG Transdermal Patch TOP SCH (06:15)
== END 2023-01-08 12:32 | disposition home or self-care (01) ==
LOC: JP.SDS 05:42
PROVIDERS: ATTEND Surgery
DX: K42.0 Umbilical hernia with obstruction, without gangrene (principal); K43.0 Incisional hernia with obstruction, without gangrene; K21.9 Gastro-esophageal reflux disease without esophagitis
CPT/HCPCS: 49616; 81025; A9270; C1781; J0131; J0171; J0330; J0690; J1100; J1170; J1885; J2020; J2185; J2405; J2704; J2710; J2795; J3010; J3410; J3490; J7121; J2001

== ENCOUNTER 2023-07-13 22:12 | Emergency (ER) | payer SELFPAY ==
[2023-07-13 22:20] VITALS: BP 144/73; PULSE 96
[2023-07-13] MEDS ORDERED: Ketorolac 30 MG/ML SDV IM ONE (22:43)
== END 2023-07-13 23:07 | disposition home or self-care (01) ==
LOC: JP.ED 22:12
DX: K04.7 Periapical abscess without sinus (principal); Z86.16 Personal history of COVID-19; Z79.899 Other long term (current) drug therapy; F17.210 Nicotine dependence, cigarettes, uncomplicated; Z88.8 Allergy status to other drugs, medicaments and biological substances; Z79.2 Long term (current) use of antibiotics
CPT/HCPCS: 96372; 99282; 99283; J1885

== ENCOUNTER 2023-07-14 21:27 | Emergency (ER) | payer SELFPAY ==
[2023-07-14 21:42] VITALS: BP 132/58; PULSE 91
[2023-07-14] MEDS ORDERED: Bupivacaine 0.5%/EPINEPHrine 1:200,000 1.8 ML Cartridge INJECT ONE (21:59)
[2023-07-14] MEDS ORDERED: Clindamycin in 0.9 % Sod Chlor 600 MG in Premix Bag 1 BAG IV ONE ×4 (22:09→22:35)
[2023-07-14] MEDS ORDERED: Clindamycin in 0.9 % Sod Chlor 300 MG in Premix Bag 1 BAG IV ONE ×2 (22:35)
[2023-07-14] MEDS ORDERED: methylPREDNISolone Sodium Succinate 40 MG/1 ML SDV IVPUSH ONE (22:37)
[2023-07-14] MEDS ORDERED: Clindamycin in 0.9 % Sod Chlor 300 MG in Premix Bag 1 BAG IV SCH ×2 (23:00)
[2023-07-14] MEDS ORDERED: fentaNYL 50 MCG/ML SDV IVPUSH ONE (23:22)
== END 2023-07-14 23:39 | disposition home or self-care (01) ==
LOC: JP.ED 21:27
DX: K04.7 Periapical abscess without sinus (principal); K21.9 Gastro-esophageal reflux disease without esophagitis; F17.200 Nicotine dependence, unspecified, uncomplicated; Z79.899 Other long term (current) drug therapy; Z79.2 Long term (current) use of antibiotics; Z88.6 Allergy status to analgesic agent; Z88.8 Allergy status to other drugs, medicaments and biological substances
CPT/HCPCS: 64400; 96365; 96375; 99282; 99283; J2920; J3010; J3490

== ENCOUNTER 2023-08-03 10:35 | Emergency (ER) | payer MEDICAID ==
[2023-08-03] MEDS ORDERED: Betamethasone Acetate/Betamethasone Sod Phosphate 6 MG/1 ML MDV IM ONE (11:27)
[2023-08-03] MEDS ORDERED: Penicillin G Benzathine 1,200,000 Units/2 ML Syringe IM ONE (11:29)
[2023-08-03] MEDS ORDERED: NIFEdipine 10 MG Cap PO ONE (11:42)
[2023-08-03 12:39] VITALS: BP 115/64; PULSE 105
== END 2023-08-03 12:46 | disposition home or self-care (01) ==
LOC: JP.ED 10:35
DX: O60.03 Preterm labor without delivery, third trimester (principal); O99.333 Smoking (tobacco) complicating pregnancy, third trimester; F17.210 Nicotine dependence, cigarettes, uncomplicated; O99.613 Diseases of the digestive system complicating pregnancy, third trimester; K21.9 Gastro-esophageal reflux disease without esophagitis; Z3A.32 32 weeks gestation of pregnancy; Z79.899 Other long term (current) drug therapy; Z88.6 Allergy status to analgesic agent; Z88.1 Allergy status to other antibiotic agents
CPT/HCPCS: 87081; 96372; 99285; A9270; J0561; J0702

== ENCOUNTER 2025-05-06 15:18 | Emergency (ER) | payer SELFPAY ==
[2025-05-06 16:55] LABS: PLATELET COUNT,PLT 254 K/uL (130-375); RED BLOOD CELL COUNT 4.24 M/uL (3.77-5.24); WHITE BLOOD CELL COUNT,WBC 8.8 K/uL (3.2-11.0)
[2025-05-06 17:20] LABS: A/G RATIO 1.3 (1.2-2.2); ALANINE AMINOTRANSFERASE,ALT 28 U/L (12-78); ASPARTATE AMNIOTRANSFERASE,AST 20 U/L (15-37); BILIRUBIN TOTAL 0.2 mg/dL (0.2-1.0); BLOOD UREA NITROGEN,BUN 6 mg/dL (7-18); CARBON DIOXIDE,CO2 28 mmol/L (21-32); CHLORIDE,CL 106 mmol/L (100-108); CREATININE 0.6 mg/dL (0.6-1.0); EST CRCL DRUG DOSING (CG) 107.23 mL/min; ESTIMATED GFR 119 mL/min (>60); GLUCOSE RANDOM 94 mg/dL (74-106); POTASSIUM,K 3.5 mmol/L (3.6-5.2); PROTEIN TOTAL,TP 7.1 g/dL (6.4-8.2); SODIUM,NA 141 mmol/L (140-148)
[2025-05-06 17:21] LABS: INR 1.0; PTT,PARTIAL THROMBOPLSTIN TIME 25.0 sec (21.8-27.3)
[2025-05-06 17:23] LABS: ATYPICAL LYMPHOCYTES FEW; EOSINOPHILS ABSOLUTE MAN 0.09 K/uL (0.00-0.40); EOSINOPHILS PERCENT MAN 1 % (2-4); LYMPHOCYTES ABSOLUTE MAN 3.34 K/uL (0.8-3.3); LYMPHOCYTES PERCENT MAN 38 % (24-44); MONOCYTES ABSOLUTE MAN 0.44 K/uL (0.20-0.90); MONOCYTES PERCENT MAN 5 % (2-6); NEUTROPHILS ABSOLUTE MAN 4.93 K/uL (1.0-7.6); SEG NEUTROPHILS PERCENT MAN 56 % (36-66)
[2025-05-06 18:44] VITALS: PULSE 57
[2025-05-06 18:51] VITALS: BP 123/81
[2025-05-10 01:13] LABS: ANAPLASMA PHAGOCYTOPHILUM PCR Not Detected; BABESIA MICROTI BY PCR Not Detected; EHRLICHIA CHAFFEENSIS BY PCR Not Detected; EHRLICHIA EWINGII/CANIS BY PCR Not Detected; EHRLICHIA MURIS-LIKE BY PCR Not Detected
== END 2025-05-06 20:11 | disposition left against medical advice (07) ==
LOC: JP.ED 15:18
DX: R20.0 Anesthesia of skin (principal); K21.9 Gastro-esophageal reflux disease without esophagitis; Z88.6 Allergy status to analgesic agent; Z88.1 Allergy status to other antibiotic agents; Z79.899 Other long term (current) drug therapy; Z86.16 Personal history of COVID-19
CPT/HCPCS: 36415; 70450; 70551; 80053; 84484; 85025; 85610; 85730; 86618; 87468; 87469; 87484; 87798; 93005; 99285; J7030; 93010; 99283